=== PATIENT | male | born 1965 | race American Indian/Alaskan Native ===

== ENCOUNTER 2017-06-30 18:08 | Emergency (ER) | payer SELFPAY ==
[2017-06-30 18:22] VITALS: BP 129/84
--- NOTE | 2017-06-30 22:25 | Emergency Department Report ---
Chief Complaint: Medical Clearance Stated Complaint: MEDICATION REFILL/SOB Time Seen by Provider: 06/30/17 22:20 - HPI History of Present Illness: 51-year-old -[place] male comes in for refills on his medication. Patient reports that he's been out of his medication for a week. Upon review of patient's medication he is now bottle of lisinopril that was dated 2017 which means patient should still have some pills left. I discussed the patient that his vitals are stable he has no chest pain no shortness of breathing that we will refer him to [facility] to have follow-up care. - Exam Vital Signs: Vital Signs 06/30/17 18:17 Temperature 97.5 F L Pulse Rate 96 H Respiratory 18 Rate Blood Pressure 129/84 [Left] O2 Sat by Pulse 97 Oximetry Physical Exam: Patient alert and oriented 3. Obese male Texting on his cell phone no acute distress. Cardiovascular: Regular rate and rhythm no murmurs appreciated Respiratory: Clear to auscultation bilateral Psych: Stable mood Neuro alert and oriented 3 MSE screening note: Focused history and physical exam performed. Due to findings the following was ordered: ED Disposition for MSE Condition: Stable Referrals: PRIMARY CARE, [Primary Care Provider] - 3-5 Days
== END 2017-06-30 22:30 | disposition left against medical advice (07) ==
LOC: ED 18:08
DX: R06.02 Shortness of breath (principal); Z53.21 Procedure and treatment not carried out due to patient leaving prior to being seen by health care provider